=== PATIENT | male | born 1965 | race Caucasian/White ===

== ENCOUNTER → 2020-05-12 10:56 | Outpatient (BNVA) | payer SELFPAY | PROVIDERS: Visit Provider Nurse Practitioner Family | DX: R59.0 Localized enlarged lymph nodes (principal); F17.200 Nicotine dependence, unspecified, uncomplicated | CPT/HCPCS: 80053; 83615; 85025 ==

== ENCOUNTER 2020-05-15 06:47 | Outpatient (CLI) | payer SELFPAY ==
--- NOTE | 2020-05-15 07:15 | US_ITS ---
WS: [id number] ULTRASOUND SOFT TISSUES RIGHT axilla HISTORY: axillary lymphadenopathy COMPARISON: None available. TECHNIQUE: 2-D and color Doppler imaging is submitted. Abnormal appearance to the RIGHT axilla. There is a large homogeneous ill-defined and nonvascular mas s in the RIGHT axilla. Mass measures at least 3.0 x 3.5 x 3.7 cm with surrounding edema. Edematous co mplex contrast extends superficially to the surface. There are multiple abnormal lymph nodes present. There are enlarged lymph nodes with thickening and asymmetry of the cortex. US/US soft tissue/extremity [id number] IMPRESSION: Complex mass in the RIGHT axilla with surrounding adenopathy. Phlegmonous mass is likely with adjacent lymphadenopathy. No well-defined abscess at this time. Alternatively neoplasm needs to be excluded. Recommend diagnostic mammography i f this has not been performed recently. Surgical evaluation and consultation abdullahi y be necessary.
== END 2020-05-15 06:48 | disposition home or self-care (01) ==
LOC: RAD 06:48
PROVIDERS: Visit Provider Nurse Practitioner Family
DX: R22.31 Localized swelling, mass and lump, right upper limb (principal)
CPT/HCPCS: 76882

== ENCOUNTER → 2023-11-03 16:41 | Outpatient (BNVA) | payer OTHER, BC, SELFPAY | PROVIDERS: PCP Nurse Practitioner; Visit Provider Nurse Practitioner | DX: M25.50 Pain in unspecified joint (principal); Z13.6 Encounter for screening for cardiovascular disorders; K06.9 Disorder of gingiva and edentulous alveolar ridge, unspecified | CPT/HCPCS: 80053; 80061; 85025; 85651; 86140 ==